=== PATIENT | male | born 1950 | race Caucasian/White ===

== ENCOUNTER → 2017-04-15 | Day surgery (SDC) | payer OTHER ==
[~2017-04-15] MED LIST: ALPR0.25 PO; ASPI325T8 PO; BYSTOLIC10 MG PO; BYSTOLIC20 MG PO; DABI150C PO; IV RINGERS,LACTATED 1000ML 1,000 ML IV SCH; LEVO100T PO; LIDOCAINE 2% PF Vial for OR 5 ML VIAL. ONE; LISI-334 PO; METF-620 PO; METF500T4 PO; METF500T9 PO; NIAC1000 PO; NIFE30TA2 PO; PROPOFOL 20 ML IV ONE; SIMV20TA3 PO; SIMV40TA PO; WARF10TA45 PO
[2017-04-15 10:12] VITALS: BP 113/72
--- NOTE | 2017-04-15 14:02 | PREOP HP ---
DATE OF SERVICE: 04/15/2017 REQUESTING PHYSICIAN: Dr. Owusu PRIMARY CARE PHYSICIAN: Dr. Owusu REASON FOR PROCEDURE: History of colon polyps. HISTORY OF PRESENT ILLNESS: This is a 67-year-old gentleman who presents for colorectal cancer screening. He had a colonoscopy in 2008 that demonstrated a hyperplastic polyp in his cecum. Otherwise, he states he has a stool every other day. PAST MEDICAL HISTORY: Significant for: 1. Throat cancer status post chemo and radiation. 2. Quadruple bypass. 3. Congestive heart failure. 4. Diabetes. 5. Hypertension. FAMILY HISTORY: Significant for GI cancer in his father. SOCIAL HISTORY: He does not currently drink or use tobacco, and he denies IV drug abuse. MEDICATIONS: 1. Lisinopril. 2. Amiodarone. 3. Metformin. 4. Aspirin. 5. Bystolic. 6. Levothyroxine. 7. Nifedipine. 8. Atorvastatin. PAST SURGICAL HISTORY: Significant for: 1. Cardiac valve replacement. 2. Tonsillectomy. 3. Coronary artery bypass graft. REVIEW OF SYSTEMS: A 13-point review of systems was done. It is significant for fatigue, decreased hearing, early satiety and lack of appetite, frequency and urinary incontinence, dizziness and unsteadiness, as well as easy bruising. It is otherwise negative. PHYSICAL EXAMINATION: VITAL SIGNS: He is afebrile and his vital signs are stable. GENERAL: He is an overweight male, in no apparent distress. HEENT: His oropharynx is clear. CARDIOVASCULAR: S1, S2. LUNGS: Clear. ABDOMEN: Has normoactive bowel sounds, soft, nontender, nondistended. EXTREMITIES: No edema. NEUROLOGIC: Awake, alert and oriented x 3. ASSESSMENT AND PLAN: History of colon polyps. Risks and benefits of the procedure including bleeding, perforation, non-diagnosis and sedation were explained. He has agreed to proceed. Thank you for allowing me to participate in the care of this patient. CHRIS CARVALHO MD DR: UMM/nam JOB#: [id number] / [id number] JERONIMO Chung MD
--- NOTE | 2017-04-16 14:32 | PATHOLOGY ---
PATHOLOGY REPORT * * * * * * * * FINAL DIAGNOSIS: A. Colon biopsy, transverse colon polyp: - Consistent with prominent fold. B. Colon biopsy, cecal polyp: - Tubular adenoma. COMMENT: There is no high grade dysplasia or evidence of malignancy. (JPM:mml; 04/16/2017) REPORT ELECTRONICALLY SIGNED BY: Roman Farah M.D. DATE/TIME: 04/16/2017 14:30 * * * * * * * * GROSS PATHOLOGY: A. Received in formalin labeled "Corey Grimes, transverse polyp," is a segment of owens soft tissue measuring 0.4 cm in maximum dimension. The specimen is submitted entirely in cassette A1. B. Received in formalin labeled "cecal polyp," is a segment of owens soft tissue measuring 0..5 cm in maximum dimension. The specimen is submitted entirely in cassette B1. (JPM; 04/15/17) INITIAL CPT CODE(S): A; 60163 B; 23497 Professional services [place] [address] Technical services performed by [facility] at [address] [place] [address] [address] [address]. SPECIMEN(S) RECEIVED: A.Transverse polyp B.Cecal polyp CLINICAL HISTORY: CRCS, history of polyps PATIENT: COREY GRIMES /AGE: 804/13/1950 (Age: 67) PATIENT #: [id number] ALT CASE #: SPECIMEN COLLECTION DATE: 04/15/2017 SPECIMEN RECEIVED DATE: 04/15/2017 [facility] - [address] [place] [address] - PHONE: [phone] * * * END OF REPORT * * *
== END | disposition home or self-care (01) ==
LOC: ENDOS 07:54
PROVIDERS: ATTEND Internal Medicine Gastroenterology
DX: Z09 Encounter for follow-up examination after completed treatment for conditions other than malignant neoplasm (principal); D12.0 Benign neoplasm of cecum; D12.3 Benign neoplasm of transverse colon; K64.0 First degree hemorrhoids; I25.10 Atherosclerotic heart disease of native coronary artery without angina pectoris; E78.00 Pure hypercholesterolemia, unspecified; I48.91 Unspecified atrial fibrillation; K21.9 Gastro-esophageal reflux disease without esophagitis; I13.10 Hypertensive heart and chronic kidney disease without heart failure, with stage 1 through stage 4 chronic kidney disease, or unspecified chronic kidney disease; E11.22 Type 2 diabetes mellitus with diabetic chronic kidney disease; N18.9 Chronic kidney disease, unspecified; E03.9 Hypothyroidism, unspecified; Z87.19 Personal history of other diseases of the digestive system; Z88.6 Allergy status to analgesic agent; Z79.82 Long term (current) use of aspirin
CPT/HCPCS: 45380; 88305; J2704; J2001

== ENCOUNTER → 2017-07-22 | Outpatient (CLI) | payer OTHER ==
[2017-04-15 10:12] VITALS: BP 113/72
[~2017-07-22] MED LIST changes: -IV RINGERS,LACTATED 1000ML 1,000 ML IV SCH; -LIDOCAINE 2% PF Vial for OR 5 ML VIAL. ONE; -PROPOFOL 20 ML IV ONE
--- NOTE | 2017-07-22 14:27 | KCIC ---
Ultrasound of the soft tissues of the right neck 07/22/2017 CLINICAL HISTORY: Right neck mass. History of head and neck cancer. TECHNIQUE: A real-time ultrasound examination of the right neck in the area of the patient's palpable abnormality was performed. Multiple images were obtained. FINDINGS: Comparison is made to the PET/CT scan dated 01/15/2012. Within the right neck in the region of the patient's palpable abnormality an oval-shaped heterogeneous solid mass is seen which measures 2.9 x 2.6 x 1.5 cm in longitudinal, transverse, and AP dimensions. This corresponds to the patient's palpable abnormality. It appears to be new when compared to the patient's previous PET CT scan. It most likely represents an enlarged lymph node with recurrent tumor involvement given the patient's history. No additional soft tissue mass is seen. IMPRESSION: 2.9 centimeter oval-shaped solid mass is seen in the right neck which corresponds to the patient's palpable abnormality. It is felt to most likely represent an enlarged lymph node with recurrent tumor involvement given the patient's history. Electronically signed by: Rene Tee MD (07/22/2017 2:23 PM) [facility]
== END | disposition home or self-care (01) ==
LOC: KCIC US 11:53
PROVIDERS: ATTEND Family Medicine
DX: R22.1 Localized swelling, mass and lump, neck (principal)
CPT/HCPCS: 76536

== ENCOUNTER → 2017-07-29 | Outpatient (CLI) | payer OTHER, MEDICARE ==
[2017-04-15 10:12] VITALS: BP 113/72
--- NOTE | 2017-07-29 12:41 | RAD ---
Indication: Right neck nodule on ultrasound. Head and neck cancer. Technique: PET/CT utilized 13.7 millicuries F-18 FDG IV. Patient's blood glucose level at the time of exam was [address] was obtained for attenuation correction and correlative purposes, is not intended for interpretation separate from the PET imaging. Comparison is made to a PET CT from January 15, 2012. There is also an ultrasound from July 22, 2017 One or more of the following individualized dose reduction techniques were utilized for this examination: 1. Automated exposure control 2. Adjustment of the mA and/or kV according to patient size 3. Use of iterative reconstruction technique Findings: Head and neck: Right neck mass noted on ultrasound is PET avid with SUV max of 7.0. Mild uptake within the left submandibular gland above background has SUV max of 3.1. Chest: There is no radiotracer accumulation in a pattern to suggest metastatic disease. Abdomen/pelvis: Physiologic uptake is noted within the bowel. No radiotracer accumulation in a pattern to suggest metastatic disease is apparent. There is mild nonspecific uptake in the rectum. This may be inflammatory. Musculoskeletal: There is no radiotracer accumulation in a pattern to suggest metastatic disease. Non-PET findings: Right submandibular gland appears fatty replaced or less likely absent. The PET avid mass on the right is deep to the sternocleidomastoid at the level of the thyroid cartilage. There is no airway narrowing. There is atheromatous disease in the thoracic aorta. There are calcified mediastinal lymph nodes. There are coronary artery calcifications. There are calcified granulomas. There is dependent atelectasis. Parapelvic cysts or extrarenal pelvis is noted bilaterally. Prostate is mildly enlarged. Impression: 1. Area of concern on recent ultrasound is PET avid and suspicious for metastatic adenopathy in a patient with history of head and neck malignancy. 2. No evidence of distant metastatic disease.
== END | disposition home or self-care (01) ==
LOC: PETSC 09:15
PROVIDERS: ATTEND Family Medicine
DX: C09.9 Malignant neoplasm of tonsil, unspecified (principal); I25.10 Atherosclerotic heart disease of native coronary artery without angina pectoris; I70.0 Atherosclerosis of aorta
CPT/HCPCS: 78815; A9552

== ENCOUNTER → 2018-01-04 | Outpatient (CLI) | payer OTHER | END | disposition home or self-care (01) | LOC: KCIC US 15:20 | DX: I13.10 Hypertensive heart and chronic kidney disease without heart failure, with stage 1 through stage 4 chronic kidney disease, or unspecified chronic kidney disease (principal); E11.22 Type 2 diabetes mellitus with diabetic chronic kidney disease; I50.9 Heart failure, unspecified; N18.3 Chronic kidney disease, stage 3 (moderate); E78.00 Pure hypercholesterolemia, unspecified | CPT/HCPCS: 76770 ==

== ENCOUNTER → 2018-02-08 | Outpatient (CLI) | payer OTHER | END | disposition home or self-care (01) | LOC: KCIC 12:17 | DX: J18.9 Pneumonia, unspecified organism (principal); I13.10 Hypertensive heart and chronic kidney disease without heart failure, with stage 1 through stage 4 chronic kidney disease, or unspecified chronic kidney disease; E11.22 Type 2 diabetes mellitus with diabetic chronic kidney disease; N18.3 Chronic kidney disease, stage 3 (moderate) | CPT/HCPCS: 71046 ==

== ENCOUNTER → 2018-02-10 | Outpatient (CLI) | payer OTHER | END | disposition home or self-care (01) | LOC: ECHO 09:27 | DX: I08.1 Rheumatic disorders of both mitral and tricuspid valves (principal); I13.10 Hypertensive heart and chronic kidney disease without heart failure, with stage 1 through stage 4 chronic kidney disease, or unspecified chronic kidney disease; E11.22 Type 2 diabetes mellitus with diabetic chronic kidney disease; I50.9 Heart failure, unspecified; N18.3 Chronic kidney disease, stage 3 (moderate) | CPT/HCPCS: 93306 ==

== ENCOUNTER → 2018-08-15 | Outpatient (CLI) | payer OTHER ==
[2017-04-15 10:12] VITALS: BP 113/72
[~2018-08-15] MED LIST changes: -METF-620 PO; +METF10007 PO; +METF500T16 PO; -METF500T4 PO; +REGADENOSON 0.4 MG/5 ML DISP.SYRIN. IV ONE
--- NOTE | 2018-08-15 11:16 | CARD ---
MR#: [id number] Date of Study: 08/15/2018 Ordering Physician: HORTENCIA LANGE, Referring Physician: HORTENCIA LANGE, Tech: Yaritza Falk APPROVED REPORT EXAM: Two-dimensional and M-mode echocardiogram with Doppler and color Doppler. Other Information Quality : AverageHR: 70bpm INDICATION CAD Per Patient Mitral Valve ring RISK FACTORS Hypertension Hyperlipidemia Diabetes 2D DIMENSIONS RVDd3.5 (2.9-3.5cm)Left Atrium(2D)5.3 (1.6-4.0cm) IVSd1.5 (0.7-1.1cm)Aortic Root(2D)3.4 (2.0-3.7cm) LVDd5.8 (3.9-5.9cm)LVOT Diameter2.2 (1.8-2.4cm) PWd1.3 (0.7-1.1cm)LVDs3.2 (2.5-4.0cm) FS (%) 45.3 %SV124.4 ml LVEF(%)75.9 (>50%) Aortic Valve AoV Peak Caleb.133.6cm/sAoV VTI28.6cm AO Peak GR.7.1mmHgLVOT Peak Caleb.78.5cm/s LVOT VTI 19.76cmAO Mean GR.4mmHg ELIZABETH (VMAX)1.79zc9TBR (VTI)2.73cm2 Mitral Valve MV E Loicparh949.2cm/sMV DECEL IZKK100pf MV A Zfsydoat50.2cm/sMV NEN22je E/A Ratio2.3MVA (PHT)3.87cm2 TDI E/Lateral E'16.0E/Medial E'19.8 Pulmonary Valve PV Peak Gdwmvvok55.9cm/sPV Peak Grad.3mmHg Tricuspid Valve TR P. Xjulpzet877gd/sRAP PACCJWPL3hbEq TR Peak Gr.58hyKvVBFO02qhFt Pulmonary Vein S1 Azatsdiy52.3cm/sD2 Qrocwkwj02.0cm/s LEFT VENTRICLE The left ventricle is normal size. There is moderate to severe concentric left ventricular hypertroph y. The left ventricular systolic function is normal. The ejection fraction is estimated at 60%. There is normal LV segmental wall motion. The left ventricular diastolic function and filling is normal fo r age. RIGHT VENTRICLE The right ventricle is normal size. There is normal right ventricular wall thickness. The right ventr icular systolic function is normal. ATRIA The left atrium size is normal. The right atrium size is normal. The interatrial septum is intact wit h no evidence for an atrial septal defect or patent foramen ovale as noted on 2-D or Doppler imaging. AORTIC VALVE The aortic valve is thickened but opens well. Doppler and Color Flow revealed no significant aortic r egurgitation There is no significant aortic valvular stenosis. MITRAL VALVE There is no evidence of mitral valve prolapse. Doppler and Color-flow revealed mild mitral regurgitat ion. s/p mitral valve ring annuloplasty TRICUSPID VALVE The tricuspid valve is not well visualized. Doppler and Color Flow revealed trace tricuspid regurgita tion. There is no tricuspid valve stenosis. PULMONIC VALVE The pulmonic valve is not well visualized. Doppler and Color Flow revealed trace pulmonic valvular re gurgitation. GREAT VESSELS The aortic root is normal in size. The IVC was not well visualized. PERICARDIAL EFFUSION There is no evidence of significant pericardial effusion. Critical Notification Critical Value: No <Conclusion> The left ventricular systolic function is normal. The ejection fraction is estimated at 60%. There is normal LV segmental wall motion. s/p mitral valve ring annuloplasty with mild mitral regurgitation. Trace tricuspid regurgitation. PAP 35 mm Hg. There is no evidence of significant pericardial effusion. Signed by : Hortencia Lange, Electronically Approved : 08/15/2018 11:14:51
--- NOTE | 2018-08-15 12:33 | RAD ---
MR#: [id number] Date of Study: 08/15/2018 Ordering Physician: HORTENCIA WRIGHT, Referring Physician: SANDRA AGUIRRE Tech: FAROOQ Huerta APPROVED REPORT Test Type: Pharmacological Stress Nurse/Tech: Terri Weiss RN Test Indications: CAD Cardiac History: Hypertension, Diabetes,CABG 2012 Medications: See Electronic Medical Record Medical History: See Electronic Medical Record Resting ECG: SR with BBB Resting Heart Rate: 70 bpm Resting Blood Pressure: 185/95mmHg Pretest Chest Pain: No chest pain Nurse/Tech Notes S1,S2 and lungs are clear to auscultation. Consent: The procedure was explained to the patient in lay terms. Informed consent was witnessed. Ulises eout was entered into [employer]. History and Stress Test performed by JOSE Hernandez, MICHELE (R) (N) Pharm. Details Pharmacologic stress testing was performed using 0.4mg per 5ml of regadenoson given intravenously ove r 7-10 seconds. Stress Symptoms Dizziness,Dyspnea POST EXERCISE Reason for Termination: Infusion complete Target HR: No Max HR: 99 bpm Max Blood Pressure: 175/58mmHg Blood Pressure response to exercise: Abnormal blood pressure response during stress. Heart Rate response to exercise: WNL Chest Pain: No. Arrhythmia: No. ST Change: No. INTERPRETATION Stress EKG Conclusion: Baseline EKG showed sinus rhythm with RBBB. Non diagnostic changes at peak st ress. No arrhythmias. Imaging Protocol IMAGE PROTOCOL: Rest Tc-99m/stress Tc-99m 1 day Rest: Stress: Viability: Radiopharm.Tc99m IpspgolhaYa79s Sestamibi Dose10.5mCi 33mCi Duration 15min. 13min. Img Date 08/15/2018 08/15/2018 Inj-Img Rdpm56are. 60min. Rest Admin Site:IV - Right HandAdministrator:JOSE Hernandez, ARRT (R)(N) Stress Admin Site: IV - Right HandAdministrator: RT Claudette (R)(N) STRESS DATA End Diast. Vol.140.0mlLVEDV index BSA60.0ml End Syst. Vol.54.0mlLVESV index BSA23.0ml Myocardial Bwar823.0gEject. Cvfowxjy08.0% Stress Scores Regional WT1.00Summed WT12.00 Regional WM0.00Summed WM9.00 LV Perfusion Scintigraphic images showed diaphragmatic attenuation artifact without any other fixed or reversible defects. Wall Motion Normal left ventricle systolic function with ejection fraction calculated at 61%. LV Perf. Quant 17 Seg. SSS5.00 17 Seg. SRS12.00 17 Seg. SDS1.00 Stress Defect Extent (% LAD)3.10Rest Defect Extent (% LAD)11.90Rev. Defect Extent (% LAD)0.00 Stress Defect Extent (% LCX) 11.30Rest Defect Extent (% LCX)13.80Rev. Defect Extent (% LCX)10.00 Stress Defect Extent (% RCA)5.60Rest Defect Extent (% RCA)41.10Rev. Defect Extent (% RCA)0.00 Stress Defect Extent (% IHSAN)10.40Rest Defect Extent (% IHSAN)23.70Rev. Defect Extent (% IHSAN)1.70 Conclusion 1. Regadenoson cardioisotope stress test showed diaphragmatic attenuation artifact without any eviden ce of ischemia or infarct. 2. Normal left ventricular systolic function with ejection fraction calculated at 61%. 3. Low risk for cardiac events. Signed by : Hortencia Wright, Electronically Approved : 08/15/2018 12:32:02
== END | disposition home or self-care (01) ==
LOC: NM 07:29
PROVIDERS: ATTEND Internal Medicine Cardiovascular Disease
DX: I34.0 Nonrheumatic mitral (valve) insufficiency (principal); I25.10 Atherosclerotic heart disease of native coronary artery without angina pectoris; E11.9 Type 2 diabetes mellitus without complications; E78.5 Hyperlipidemia, unspecified; I11.9 Hypertensive heart disease without heart failure; Z95.1 Presence of aortocoronary bypass graft
CPT/HCPCS: 78452; 93017; 93306; 96374; A9500; J2785